=== PATIENT | female | born 1980 | race African-American/Black ===

== ENCOUNTER 2018-07-22 08:11 | Day surgery (SDC) | payer BC ==
[~2018-07-22 08:11] MED LIST: Bupivacaine 0.25% 10 ML SDV ONE; Fluorescein 5 ML Vial ONE; Methylene Blue 50 MG/10 ML Ampule ONE; Sodium Chloride 0.9% 10 ML SDV IV PRN; Sodium Chloride 0.9% 10 ML Syringe FLUSH PRN; Sodium Chloride 0.9% 2.5 ML Syringe FLUSH PRN
[2018-07-22] MEDS: Lactated Ringers 1,000 ML IV SCH ×2 (09:09→18:44)
[2018-07-22 09:10] LABS: CHLORIDE,CL 103 mmol/L (98-107); SODIUM,NA 141 mmol/L (136-145)
[2018-07-22] MEDS ORDERED: fentaNYL 250 MCG/5 ML SDV ONE (09:32)
[2018-07-22] MEDS ORDERED: Propofol 200 MG/20 ML SDV ONE ×2 (09:32→11:14)
--- NOTE | 2018-07-22 10:11 | PCM.PREANE ---
Preanesthetic Assessment - Anesthesia/Transfusion/Family Hx Anesthesia History: Prior Anesthesia Without Reaction Other Type of Anesthesia Reaction Comment: "dry heaves when I wake up" Family History of Anesthesia Reaction: No Transfusion History: No Prior Transfusion(s) - Review of Systems General: No Symptoms Pulmonary: No Symptoms Cardiovascular: No Symptoms Gastrointestinal: No Symptoms Neurological: No Symptoms Other: Reports: None - Physical Assessment NPO Status Date: 07/21/18 O2 Sat by Pulse Oximetry: 97 Respiratory Rate: 16 Vital Signs: Last Vital Signs Temp 97.2 F 07/22/18 08:30 Pulse 91 07/22/18 08:30 Resp 16 07/22/18 08:30 BP 150/91 H 07/22/18 08:30 Pulse Ox 97 07/22/18 08:30 Height: 5 ft 7 in Weight: 116.573 kg ASA Class: 2 Mental Status: Alert & Oriented x3 Dentition: Reports: Normal Dentition Lungs: Clear to Auscultation, Normal Respiratory Effort Cardiovascular: Regular Rate, Regular Rhythm - Lab Values: Laboratory Last Values WBC 6.19 K/uL (4.0-11.0) 07/22/18 08:41 RBC 4.84 M/uL (4.30-5.90) 07/22/18 08:41 Hgb 13.9 g/dL (12.0-16.0) 07/22/18 08:41 Hct 41.3 % (36.0-46.0) 07/22/18 08:41 MCV 85.3 fL (80.0-98.0) 07/22/18 08:41 MCH 28.7 pg (27.0-32.0) 07/22/18 08:41 MCHC 33.7 g/dL (31.0-37.0) 07/22/18 08:41 RDW Std Deviation 44.9 fl (28.0-62.0) 07/22/18 08:41 RDW Coeff of Candido 14 % (11.0-15.0) 07/22/18 08:41 Plt Count 261 K/uL (150-400) 07/22/18 08:41 MPV 11.30 fL (7.40-12.00) 07/22/18 08:41 Neut % (Auto) 60.2 % (48.0-80.0) 07/22/18 08:41 Lymph % (Auto) 27.5 % (16.0-40.0) 07/22/18 08:41 [place] % (Auto) 7.3 % (0.0-15.0) 07/22/18 08:41 Eos % (Auto) 4.5 % (0.0-7.0) 07/22/18 08:41 Baso % (Auto) 0.5 % (0.0-1.5) 07/22/18 08:41 Neut # (Auto) 3.7 K/uL (1.4-5.7) 07/22/18 08:41 Lymph # (Auto) 1.7 K/uL (0.6-2.4) 07/22/18 08:41 [place] # (Auto) 0.5 K/uL (0.0-0.8) 07/22/18 08:41 Eos # (Auto) 0.3 K/uL (0.0-0.7) 07/22/18 08:41 Baso # (Auto) 0.0 K/uL (0.0-0.1) 07/22/18 08:41 Nucleated RBC % 0.0 /100WBC 07/22/18 08:41 Nucleated RBCs # 0 K/uL 07/22/18 08:41 Sodium 141 mmol/L (136-145) 07/22/18 08:41 Potassium 3.4 mmol/L (3.5-5.1) L 07/22/18 08:41 Chloride 103 mmol/L (98-107) 07/22/18 08:41 Carbon Dioxide 24.6 mmol/L (21.0-32.0) 07/22/18 08:41 BUN 6 mg/dL (7.0-18.0) L 07/22/18 08:41 Creatinine 0.9 mg/dL (0.6-1.0) 07/22/18 08:41 Est Cr Clr Drug Dosing 83.23 mL/min 07/22/18 08:41 Estimated GFR (MDRD) > 60.0 ml/min 07/22/18 08:41 Glucose 101 mg/dL (74-106) 07/22/18 08:41 Calcium 9.0 mg/dL (8.5-10.1) 07/22/18 08:41 HCG, Qual NEGATIVE (NEG) 07/22/18 08:41 Blood Type O POSITIVE 07/22/18 08:41 Antibody Screen NEGATIVE 07/22/18 08:41 - Allergies Allergies/Adverse Reactions: Allergies Allergy/AdvReac Type Severity Reaction Status Date / Time No Known Allergies Allergy Verified 07/22/18 08:39 - Blood Blood Available: No - Anesthesia Plan Pre-Op Medication Ordered: None - Acknowledgements Anesthesia Type Planned: General Anesthesia Pt an Appropriate Candidate for the Planned Anesthesia: Yes Alternatives and Risks of Anesthesia Discussed w Pt/Guardian: Yes Pt/Guardian Understands and Agrees with Anesthesia Plan: Yes Additional Comments: PMH: [place], MARIO- not using CPAP, (60# wt loss since MARIO testing), PCOS, htn, smoker PLAN: get PreAnesthesia Questionnaire - Past Health History Medical/Surgical History: Denies Medical/Surgical History HEENT History: Reports: Other (See Below) Other HEENT History: wears glasses Cardiovascular History: Reports: Hypertension Other Cardiovascular History: on BP meds in the past, Respiratory History: Reports: Sleep Apnea Other Respiratory History: does not use CPAP Gastrointestinal History: Reports: Other (See Below) Other Gastrointestinal History: on pantoprazole for prevention due to bariatric surgery Genitourinary History: Reports: None [employer] History: Reports: Polycystic Ovaries, Musculoskeletal History: Reports: None Neurological History: Reports: None Psychiatric History: Reports: None Endocrine/Metabolic History: Reports: Obesity/BMI 30+ Other Endocrine/Metabolic History: "prediabetic" Hematologic History: Reports: None Immunologic History: Reports: None Oncologic (Cancer) History: Reports: None Dermatologic History: Reports: None - Infectious Disease History Infectious Disease History: Reports: Chicken Pox - Past Surgical History Head Surgeries/Procedures: Reports: None Respiratory Surgical History: Reports: None GI Surgical History: Reports: Bariatric Procedure, Other (See Below) Other GI Surgeries/Procedures: hx gasteric sleeve Female Surgical History: Reports: Section, Tubal Ligation Neurological Surgical History: Reports: None Musculoskeletal Surgical History: Reports: None Oncologic Surgical History: Reports: None - SUBSTANCE USE Smoking Status *Q: Current Some Day Smoker Tobacco Use Within Last Twelve Months: Cigarettes Recreational Drug Use History: No - HOME MEDS Home Medications: Home Meds Cholecalciferol (Vitamin D3) [Vitamin D3] 1,000 units PO DAILY 07/18/18 [History ] Cyanocobalamin (Vitamin B12) [Vitamin B12] 100 mcg PO DAILY 07/18/18 [History] Multivits,Ca,Minerals/Iron/FA [One-A-Day Women's] 1 tab PO DAILY 07/18/18 [ History] Pantoprazole Sodium 40 mg PO DAILY 07/18/18 [History] Vitamin B Complex 1 tab PO DAILY 07/18/18 [History] metFORMIN HCl [Metformin HCl ER] 500 mg PO DAILY 07/18/18 [History] - CURRENT (IN HOUSE) MEDS Current Meds: Current Medications Lactated Ringer's (Ringers, Lactated) 1,000 mls @ 125 mls/hr IV ASDIRECTED [place] Last Admin: 07/22/18 09:09 Dose: 125 mls/hr Sodium Chloride (Saline Flush) 10 ml FLUSH ASDIRECTED PRN PRN Reason: Keep Vein Open Sodium Chloride (Saline Flush) 2.5 ml FLUSH ASDIRECTED PRN PRN Reason: Keep Vein Open Sodium Chloride (Normal Saline) 10 ml IV ASDIRECTED PRN PRN Reason: IV Use Discontinued Medications Bupivacaine HCl (Sensorcaine-Mpf 0.25%) Confirm Administered Dose 10 ml .ROUTE .STK-MED ONE Stop: 07/22/18 08:07 Fentanyl (Sublimaze) Confirm Administered Dose 250 mcg .ROUTE .STK-MED ONE Stop: 07/22/18 09:33 Fluorescein Sodium (Ak-Fluor) Confirm Administered Dose 5 ml .ROUTE .STK-MED ONE Stop: 07/22/18 08:07 Cefazolin Sodium/Dextrose 3 gm (/ Premix) 75 mls @ 100 mls/hr IV ONETIME ONE Stop: 07/22/18 08:36 Methylene Blue (Provayblue) Confirm Administered Dose 50 mg .ROUTE .STK-MED ONE Stop: 07/22/18 08:07 Propofol (Diprivan 20 Ml) Confirm Administered Dose 200 mg .ROUTE .STK-MED ONE Stop: 07/22/18 09:33
[2018-07-22] MEDS ORDERED: Rocuronium 100 MG/10 ML Syringe ONE (10:27)
[2018-07-22] MEDS ORDERED: Lidocaine 2% 5 ML SDV ONE (10:27)
[2018-07-22] MEDS ORDERED: ceFAZolin/Dextrose,Iso-Osmotic 2 GM/50 ML Duplex Bag IV ONE (10:28)
[2018-07-22] MEDS ORDERED: ceFAZolin 1 GM Vial ONE (10:29)
[2018-07-22] MEDS ORDERED: Midazolam 1 MG/ML 2 ML SDV ONE (10:29)
[2018-07-22] MEDS ORDERED: Ondansetron 4 MG/2 ML SDV ONE (11:19)
[2018-07-22] MEDS ORDERED: Ondansetron 4 MG/2 ML SDV IVPUSH ONE (11:22)
[2018-07-22] MEDS ORDERED: HYDROmorphone 2 MG/ML SDV IVPUSH ONE (11:22)
[2018-07-22] MEDS ORDERED: fentaNYL 100 MCG/2 ML SDV IVPUSH PRN (11:22)
[2018-07-22] MEDS ORDERED: HYDROmorphone 2 MG/ML Syringe ONE (11:23)
[2018-07-22] MEDS ORDERED: Furosemide 40 MG/4 ML VIAL ONE (12:29)
[2018-07-22] MEDS ORDERED: Glycopyrrolate 0.2 MG/ML SDV ONE (13:01)
[2018-07-22] MEDS ORDERED: Neostigmine Methylsulfate 1 MG/ML 5 ML Syringe ONE (13:01)
[2018-07-22] MEDS ORDERED: Ketorolac 30 MG/ML SDV ONE (13:02)
[2018-07-22] MEDS ORDERED: Ketorolac 30 MG/ML SDV IVPUSH ONE (13:19)
[2018-07-22] MEDS ORDERED: Promethazine 25 MG/ML SDV IM PRN (13:19)
[2018-07-22] MEDS ORDERED: Morphine 4 MG/ML Syringe IVPUSH PRN (13:19)
[2018-07-22] MEDS ORDERED: Ondansetron 4 MG/2 ML SDV IVPUSH PRN (13:19)
[2018-07-22] MEDS ORDERED: Ketorolac 30 MG/ML SDV IVPUSH PRN (13:19)
[2018-07-22] MEDS ORDERED: Acetaminophen/oxyCODONE 325-5 MG Tab PO PRN (13:19)
[2018-07-22] MEDS ORDERED: Acetaminophen 1,000 MG in Premix Bag 1 BAG IV PRN (13:23)
--- NOTE | 2018-07-22 13:27 | PCM.OPNOTE ---
- General Post-Op/Procedure Note Date of Surgery/Procedure: 07/22/18 Operative Procedure(s): Total laparoscopic Hysterectomy. Bilateral salphingectomy. Cystoscopy Findings: Normal sized anteverted uterus Tubes with evidence of salphingectomy Pre Op Diagnosis: Abnormal Uterine bleeding Post-Op Diagnosis: Abnormal Uterine bleeding Anesthesia Technique: Other (see below) (General) Primary Surgeon: Alberto Hope Secondary Surgeon: Josefina Navarro Pathology: Uterus and Tubes Fluid Replacement, Intraop: 75 Output, Urine Amount: 1,500 EBL in mLs: 100 Complications: None Condition: Good
--- NOTE | 2018-07-22 13:48 | PCM.POSTAN ---
POST ANESTHESIA ASSESSMENT - MENTAL STATUS Mental Status: Alert, Oriented - RESPIRATORY Respiratory Status: Respiratory Rate WNL, Airway Patent, O2 Saturation Stable - CARDIOVASCULAR CV Status: Pulse Rate WNL, Blood Pressure Stable - GASTROINTESTINAL GI Status: No Symptoms - POST OP HYDRATION Hydration Status: Adequate & Stable
[2018-07-22] MEDS: Acetaminophen/oxyCODONE 325-5 MG Tab PO PRN ×2 (16:25→20:33)
[2018-07-22] MEDS: Metoclopramide 10 MG/2 ML SDV IVPUSH SCH ×2 (18:50→20:34)
[2018-07-22] MEDS ORDERED: ceFAZolin 2 GM in Premix Bag 1 BAG IV ONE (20:00)
[2018-07-23] MEDS: Acetaminophen/oxyCODONE 325-5 MG Tab PO PRN ×3 (00:33→08:26)
[2018-07-23] MEDS: Metoclopramide 10 MG/2 ML SDV IVPUSH SCH ×2 (04:31→04:33)
[2018-07-23 06:22] LABS: CHLORIDE,CL 102 mmol/L (98-107); SODIUM,NA 137 mmol/L (136-145)
[2018-07-23 07:40] VITALS: BP 110/56
--- NOTE | 2018-07-23 08:02 | PCM48HPAN ---
Post Anesthesia Note - EVALUATION WITHIN 48HRS OF ANESTHETIC Vital Signs in Normal Range: Yes Patient Participated in Evaluation: Yes Respiratory Function Stable: Yes Airway Patent: Yes Cardiovascular Function Stable: Yes Hydration Status Stable: Yes Pain Control Satisfactory: Yes (pain 6/10 but controlled per patient) Nausea and Vomiting Control Satisfactory: Yes Mental Status Recovered: Yes Resp Rate: 17
--- NOTE | 2018-07-23 08:43 | PCM.SURGPN ---
- General Info Date of Service: 07/23/18 Date of Surgery/Procedure: 07/22/18 POD#: 1 Post-Op Diagnosis: Abnormal Uterine Bleeding Functional Status: Reports: Pain Controlled, Tolerating Diet, Ambulating, Urinating - Review of Systems General: Reports: No Symptoms HEENT: Reports: No Symptoms Pulmonary: Reports: No Symptoms Cardiovascular: Reports: No Symptoms Gastrointestinal: Reports: No Symptoms Genitourinary: Reports: No Symptoms Musculoskeletal: Reports: No Symptoms Skin: Reports: No Symptoms Neurological: Reports: No Symptoms Psychiatric: Reports: No Symptoms - Patient Data Vitals - Most Recent: Last Vital Signs Temp 37.0 C 07/23/18 07:39 Pulse 60 07/23/18 07:39 Resp 17 07/23/18 08:02 BP 110/56 L 07/23/18 07:39 Pulse Ox 96 07/23/18 07:39 Weight - Most Recent: 116.573 kg I&O - Last 24 Hours: Intake & Output 07/22/18 07/23/18 07/23/18 22:59 06:59 14:59 Intake Total 250 1100 Output Total 200 450 Balance 50 650 Lab Results Last 24 Hrs: Laboratory Results - last 24 hr 07/22/18 07/22/18 07/22/18 Range/Units 08:41 08:41 08:41 WBC 6.19 (4.0-11.0) K/uL RBC 4.84 (4.30-5.90) M/uL Hgb 13.9 (12.0-16.0) g/dL Hct 41.3 (36.0-46.0) % MCV 85.3 (80.0-98.0) fL MCH 28.7 (27.0-32.0) pg MCHC 33.7 (31.0-37.0) g/dL RDW Std Deviation 44.9 (28.0-62.0) fl RDW Coeff of Candido 14 (11.0-15.0) % Plt Count 261 (150-400) K/uL MPV 11.30 (7.40-12.00) fL Neut % (Auto) 60.2 (48.0-80.0) % Lymph % (Auto) 27.5 (16.0-40.0) % [place] % (Auto) 7.3 (0.0-15.0) % Eos % (Auto) 4.5 (0.0-7.0) % Baso % (Auto) 0.5 (0.0-1.5) % Neut # (Auto) 3.7 (1.4-5.7) K/uL Lymph # (Auto) 1.7 (0.6-2.4) K/uL [place] # (Auto) 0.5 (0.0-0.8) K/uL Eos # (Auto) 0.3 (0.0-0.7) K/uL Baso # (Auto) 0.0 (0.0-0.1) K/uL Nucleated RBC % 0.0 /100WBC Nucleated RBCs # 0 K/uL Sodium 141 (136-145) mmol/L Potassium 3.4 L (3.5-5.1) mmol/L Chloride 103 (98-107) mmol/L Carbon Dioxide 24.6 (21.0-32.0) mmol/L BUN 6 L (7.0-18.0) mg/dL Creatinine 0.9 (0.6-1.0) mg/dL Est Cr Clr Drug Dosing 83.23 mL/min Estimated GFR (MDRD) > 60.0 ml/min Glucose 101 (74-106) mg/dL Calcium 9.0 (8.5-10.1) mg/dL HCG, Qual NEGATIVE (NEG) Blood Type Antibody Screen 07/22/18 07/23/18 07/23/18 Range/Units 08:41 05:30 05:30 WBC 9.22 (4.0-11.0) K/uL RBC 4.06 L (4.30-5.90) M/uL Hgb 11.7 L (12.0-16.0) g/dL Hct 34.9 L (36.0-46.0) % MCV 86.0 (80.0-98.0) fL MCH 28.8 (27.0-32.0) pg MCHC 33.5 (31.0-37.0) g/dL RDW Std Deviation 44.4 (28.0-62.0) fl RDW Coeff of Candido 14 (11.0-15.0) % Plt Count 268 (150-400) K/uL MPV 11.60 (7.40-12.00) fL Neut % (Auto) 76.9 (48.0-80.0) % Lymph % (Auto) 15.1 L (16.0-40.0) % [place] % (Auto) 7.4 (0.0-15.0) % Eos % (Auto) 0.5 (0.0-7.0) % Baso % (Auto) 0.1 (0.0-1.5) % Neut # (Auto) 7.1 H (1.4-5.7) K/uL Lymph # (Auto) 1.4 (0.6-2.4) K/uL [place] # (Auto) 0.7 (0.0-0.8) K/uL Eos # (Auto) 0.1 (0.0-0.7) K/uL Baso # (Auto) 0.0 (0.0-0.1) K/uL Nucleated RBC % 0.0 /100WBC Nucleated RBCs # 0 K/uL Sodium 137 (136-145) mmol/L Potassium 4.7 (3.5-5.1) mmol/L Chloride 102 (98-107) mmol/L Carbon Dioxide 27.6 (21.0-32.0) mmol/L BUN 7 (7.0-18.0) mg/dL Creatinine 0.9 (0.6-1.0) mg/dL Est Cr Clr Drug Dosing 83.23 mL/min Estimated GFR (MDRD) > 60.0 ml/min Glucose 112 H (74-106) mg/dL Calcium 8.4 L (8.5-10.1) mg/dL HCG, Qual (NEG) Blood Type O POSITIVE Antibody Screen NEGATIVE Med Orders - Current: Current Medications Fentanyl (Sublimaze) 50 mcg IVPUSH Q5M PRN PRN Reason: Pain (severe 7-10) Stop: 07/23/18 11:22 Lactated Ringer's (Ringers, Lactated) 1,000 mls @ 125 mls/hr IV ASDIRECTED [facility] Last Admin: 07/22/18 18:44 Dose: 125 mls/hr Acetaminophen 1,000 mg/ Premix 100 mls @ 400 mls/hr IV Q6H PRN PRN Reason: Pain Ketorolac Tromethamine (Toradol) 30 mg IVPUSH Q6H PRN PRN Reason: Pain (severe 7-10) Stop: 07/27/18 13:19 Last Admin: 07/22/18 19:47 Dose: 30 mg Metoclopramide HCl (Reglan) 10 mg IVPUSH Q8H [place] Last Admin: 07/23/18 04:33 Dose: Not Given Morphine Sulfate (Morphine) 4 mg IVPUSH Q2H PRN PRN Reason: Pain (severe 7-10) Ondansetron HCl (Zofran) 4 mg IVPUSH Q6H PRN PRN Reason: Nausea/Vomiting Oxycodone/Acetaminophen (Percocet 325-5 Mg) 1 tab PO Q4H PRN PRN Reason: Pain (moderate 4-6) Oxycodone/Acetaminophen (Percocet 325-5 Mg) 2 tab PO Q4H PRN PRN Reason: Pain (moderate 4-6) Last Admin: 07/23/18 08:26 Dose: 2 tab Promethazine HCl (Phenergan) 25 mg IM Q6H PRN PRN Reason: Nausea/Vomiting Sodium Chloride (Saline Flush) 10 ml FLUSH ASDIRECTED PRN PRN Reason: Keep Vein Open Sodium Chloride (Saline Flush) 2.5 ml FLUSH ASDIRECTED PRN PRN Reason: Keep Vein Open Sodium Chloride (Normal Saline) 10 ml IV ASDIRECTED PRN PRN Reason: IV Use Discontinued Medications Bupivacaine HCl (Sensorcaine-Mpf 0.25%) Confirm Administered Dose 10 ml .ROUTE .STK-MED ONE Stop: 07/22/18 08:07 Cefazolin Sodium (Ancef) Confirm Administered Dose 1 gm .ROUTE .STK-MED ONE Stop: 07/22/18 10:30 Cefazolin Sodium/Dextrose (Ancef) Confirm Administered Dose 2 gm IV .STK-MED ONE Stop: 07/22/18 10:29 Fentanyl (Sublimaze) Confirm Administered Dose 250 mcg .ROUTE .STK-MED ONE Stop: 07/22/18 09:33 Fluorescein Sodium (Ak-Fluor) Confirm Administered Dose 5 ml .ROUTE .STK-MED ONE Stop: 07/22/18 08:07 Furosemide (Lasix) Confirm Administered Dose 40 mg .ROUTE .STK-MED ONE Stop: 07/22/18 12:30 Glycopyrrolate (Robinul) Confirm Administered Dose 0.2 mg .ROUTE .STK-MED ONE Stop: 07/22/18 13:02 Hydromorphone HCl (Dilaudid) Confirm Administered Dose 2 mg .ROUTE .STK-MED ONE Stop: 07/22/18 11:24 Hydromorphone HCl (Dilaudid) 2 mg IVPUSH ONETIME ONE Stop: 07/22/18 11:23 Last Admin: 07/22/18 18:43 Dose: Not Given Cefazolin Sodium/Dextrose 3 gm (/ Premix) 75 mls @ 100 mls/hr IV ONETIME ONE Stop: 07/22/18 08:36 Last Admin: 07/22/18 18:42 Dose: Not Given Cefazolin Sodium/Dextrose 2 gm (/ Premix) 50 mls @ 100 mls/hr IV ONETIME ONE Stop: 07/22/18 20:29 Last Admin: 07/22/18 19:47 Dose: 100 mls/hr Ketorolac Tromethamine (Toradol) Confirm Administered Dose 30 mg .ROUTE .STK- MED ONE Stop: 07/22/18 13:03 Ketorolac Tromethamine (Toradol) 30 mg IVPUSH ONETIME ONE Stop: 07/22/18 13:20 Last Admin: 07/22/18 18:48 Dose: Not Given Lidocaine (Xylocaine-Mpf 2%) Confirm Administered Dose 5 ml .ROUTE .STK-MED ONE Stop: 07/22/18 10:28 Methylene Blue (Provayblue) Confirm Administered Dose 50 mg .ROUTE .STK-MED ONE Stop: 07/22/18 08:07 Midazolam HCl (Versed 1 Mg/Ml) Confirm Administered Dose 2 mg .ROUTE .STK-MED ONE Stop: 07/22/18 10:30 Neostigmine Methylsulfate (Neostigmine) Confirm Administered Dose 5 mg .ROUTE .STK-MED ONE Stop: 07/22/18 13:02 Ondansetron HCl (Zofran) Confirm Administered Dose 4 mg .ROUTE .STK-MED ONE Stop: 07/22/18 11:20 Ondansetron HCl (Zofran) 4 mg IVPUSH ONETIME ONE Stop: 07/22/18 11:23 Last Admin: 07/22/18 18:43 Dose: Not Given Propofol (Diprivan 20 Ml) Confirm Administered Dose 200 mg .ROUTE .STK-MED ONE Stop: 07/22/18 09:33 Propofol (Diprivan 20 Ml) Confirm Administered Dose 200 mg .ROUTE .STK-MED ONE Stop: 07/22/18 11:15 Rocuronium [place] (Zemuron) Confirm Administered Dose 100 mg .ROUTE .STK-MED ONE Stop: 07/22/18 10:28 - Exam Wound/Incisions: Healing Well, Dressing Dry and Intact General: Alert HEENT: Pupils Equal Neck: Supple Lungs: Clear to Auscultation Cardiovascular: Regular Rate, Regular Rhythm GI/Abdominal Exam: Normal Bowel Sounds Extremities: Normal Inspection Neurological: No New Focal Deficit Psy/Mental Status: Alert - Problem List & Annotations (1) S/P hysterectomy SNOMED Code(s): 317945593, 640406090, 753788019 Code(s): Z90.710 - ACQUIRED ABSENCE OF BOTH CERVIX AND UTERUS Status: Acute Current Visit: Yes - Problem List Review Problem List Initiated/Reviewed/Updated: Yes - My Orders Last 24 Hours: Active Orders 24 hr Category Date Time Status Patient Status [ADT] Routine ADT 07/22/18 08:07 Active Patient Status [ADT] Routine ADT 07/22/18 13:19 Active Antiembolic Devices [RC] PER UNIT ROUTINE Care 07/22/18 08:08 Active Bradycardia-Neuroaxis [employer] [RC] ROUTINE Care 07/22/18 11:22 Active Communication Order [RC] ROUTINE Care 07/22/18 17:39 Active Hypertension-Neuroaxis [employer] [RC] ROUTINE Care 07/22/18 11:22 Active Hypotension-Neuroaxis [employer] [RC] ROUTINE Care 07/22/18 11:22 Active Notify Provider Intake and Out [RC] ASDIRECTED Care 07/22/18 13:19 Active Notify Provider Vital Signs [RC] ASDIRECTED Care 07/22/18 13:19 Active Oxygen Therapy [RC] ASDIRECTED Care 07/22/18 13:19 Active RT Incentive Spirometry [RC] Q2HWA Care 07/22/18 13:19 Active Up With Assistance [RC] PER UNIT ROUTINE Care 07/22/18 13:19 Active Up ad Viktoria [RC] PER UNIT ROUTINE Care 07/22/18 13:19 Active Urinary Catheter Removal [RC] Per Unit Routine Care 07/23/18 03:00 Active Vital Signs [RC] PER UNIT ROUTINE Care 07/22/18 08:07 Active Vital Signs [RC] Q4H Care 07/22/18 13:19 Active Regular Diet [DIET] Diet 07/22/18 Dinner Active Acetaminophen [Ofirmev] 1,000 mg Med 07/22/18 13:23 Active Premix Bag 1 bag IV Q6H Acetaminophen/oxyCODONE [Percocet 325-5 MG] Med 07/22/18 13:19 Active 1 tab PO Q4H PRN Acetaminophen/oxyCODONE [Percocet 325-5 MG] Med 07/22/18 13:19 Active 2 tab PO Q4H PRN Ketorolac [Toradol] Med 07/22/18 13:19 Active 30 mg IVPUSH Q6H PRN Lactated Ringers [Ringers, Lactated] 1,000 ml Med 07/22/18 08:15 Active IV ASDIRECTED Metoclopramide [Reglan] Med 07/22/18 13:30 Active 10 mg IVPUSH Q8H [place] Med 07/22/18 13:19 Active 4 mg IVPUSH Q2H PRN Ondansetron [Zofran] Med 07/22/18 13:19 Active 4 mg IVPUSH Q6H PRN Promethazine [Phenergan] Med 07/22/18 13:19 Active 25 mg IM Q6H PRN Sodium Chloride 0.9% [Normal Saline] Med 07/22/18 08:07 Active 10 ml IV ASDIRECTED PRN Sodium Chloride 0.9% [Saline Flush] Med 07/22/18 08:07 Active 10 ml FLUSH ASDIRECTED PRN Sodium Chloride 0.9% [Saline Flush] Med 07/22/18 08:07 Active 2.5 ml FLUSH ASDIRECTED PRN fentaNYL [Sublimaze] Med 07/22/18 11:22 Active 50 mcg IVPUSH Q5M PRN Peripheral IV Discontinue [OM.PC] Routine Oth 07/22/18 13:19 Ordered Peripheral IV Insertion Adult [OM.PC] Urgent Oth 07/22/18 08:07 Ordered Sequential Compression Device [OM.PC] Per Unit Routine Oth 07/22/18 08:07 Ordered Sequential Compression Device [OM.PC] Per Unit Routine Oth 07/22/18 13:19 Ordered Resuscitation Status Routine Resus Stat 07/22/18 13:19 Ordered Medication Orders Fentanyl (Sublimaze) 50 mcg IVPUSH Q5M PRN PRN Reason: Pain (severe 7-10) Stop: 07/23/18 11:22 Lactated Ringer's (Ringers, Lactated) 1,000 mls @ 125 mls/hr IV ASDIRECTED [facility] Last Admin: 07/22/18 18:44 Dose: 125 mls/hr Infusion: 07/22/18 17:09 Dose: 125 mls/hr Admin: 07/22/18 09:09 Dose: 125 mls/hr Acetaminophen 1,000 mg/ Premix 100 mls @ 400 mls/hr IV Q6H PRN PRN Reason: Pain Ketorolac Tromethamine (Toradol) 30 mg IVPUSH Q6H PRN PRN Reason: Pain (severe 7-10) Stop: 07/27/18 13:19 Last Admin: 07/22/18 19:47 Dose: 30 mg Metoclopramide HCl (Reglan) 10 mg IVPUSH Q8H [facility] Last Admin: 07/23/18 04:33 Dose: Not Given Admin: 07/22/18 20:34 Dose: 10 mg Admin: 07/22/18 18:50 Dose: Morphine Sulfate (Morphine) 4 mg IVPUSH Q2H PRN PRN Reason: Pain (severe 7-10) Ondansetron HCl (Zofran) 4 mg IVPUSH Q6H PRN PRN Reason: Nausea/Vomiting Oxycodone/Acetaminophen (Percocet 325-5 Mg) 1 tab PO Q4H PRN PRN Reason: Pain (moderate 4-6) Oxycodone/Acetaminophen (Percocet 325-5 Mg) 2 tab PO Q4H PRN PRN Reason: Pain (moderate 4-6) Last Admin: 07/23/18 08:26 Dose: 2 tab Admin: 07/23/18 04:31 Dose: 2 tab Admin: 07/23/18 00:33 Dose: 2 tab Admin: 07/22/18 20:33 Dose: 2 tab Admin: 07/22/18 16:25 Dose: 2 tab Promethazine HCl (Phenergan) 25 mg IM Q6H PRN PRN Reason: Nausea/Vomiting Sodium Chloride (Saline Flush) 10 ml FLUSH ASDIRECTED PRN PRN Reason: Keep Vein Open Sodium Chloride (Saline Flush) 2.5 ml FLUSH ASDIRECTED PRN PRN Reason: Keep Vein Open Sodium Chloride (Normal Saline) 10 ml IV ASDIRECTED PRN PRN Reason: IV Use - Assessment Assessment (Free Text/Narrative):: 38 yo P3 s/p TLH/BS , cystectomy ,stable POD 1 - Plan Plan (Free Text/Narrative):: Pain control as needed Discharge home today Has met all post operative goals
--- NOTE | 2018-07-23 13:52 | OR ---
SURGEON: CORWIN VILLAR GRID MAKER: Josefina Navarro M.D. DATE OF PROCEDURE: 07/22/2018 PREOPERATIVE DIAGNOSIS: Abnormal uterine bleeding. POSTOPERATIVE DIAGNOSIS: Abnormal uterine bleeding. PROCEDURE: Total laparoscopic hysterectomy, bilateral salpingectomy, and cystoscopy. IV FLUIDS: 1500 mL. ESTIMATED BLOOD LOSS: 100 mL. ANESTHESIA: General. URINE OUTPUT: 75 mL. FINDINGS: A normal sized uterus with minimal adhesions noted. The cystoscopy showed intact bladder and bilateral ureteral jets. BRIEF HISTORY: She was a 38-year-old para 3, previous 3 C-sections and recent history of laparoscopic gastric sleeve. The patient came in complaining of abnormal uterine bleeding, which was affecting her quality of life. She declined any form of conservative management and wanted total hysterectomy. She was given the risks, benefits, and alternatives, and she desired to proceed. DESCRIPTION OF PROCEDURE: The patient was taken to the operating room, where general anesthesia was performed without difficulty. She was prepared and draped in the dorsolithotomy position with Aguilar stirrups. Attention was then placed to the perineum, where an Advincula manipulator was placed in without difficulty. Attention was then paid to the abdomen, where a suprapubic incision was made, after infiltration of 0.25% Marcaine. The abdomen was entered via direct entry with the gas on low flow. Upon entry into the abdomen, the abdomen was surveyed. Normal liver and gallbladder. Minimal adhesions were noted. Attention was then paid to the pelvis, where the procedure was to be started. The patient was placed in the Trendelenburg position, and 2 incisions were made in the right and lower left quadrants 2 fingerbreadths both superior and medial to the anterior superior iliac spine. Attention was paid on the right side where the fallopian tube was from the ovaries and the pelvic sidewall all the way to the cornua. The round ligament was then transected to expose the bladder flap. The bladder flap was then created anteriorly, and also posteriorly, the bladder flap was then made to the uterosacral. The uterine vessels were skeletonized. The uterine vessels were then coagulated at the junction of the colpotomy cup on the front side. After coagulation above the cup and slightly below the cup, the uterine vessels were transected slightly above the cup. The Harmonic device was then used to delineate a ruben to separate the cervix from the vagina. Then, attention was paid to the left side. At the left side, the same was done. The fallopian tube was from the pelvic sidewall and ovary, and the ovarian ligament was also transected, and the uterine vessel was exposed. The uterus was coagulated and cut at the level of the colpotomy wound. Then, the cervicovaginal junction was cut circumferentially with help of the Harmonic device. After detaching the uterus from the vagina, attention was then paid to the perineum, where the uterus was removed from the vagina, and the colpotomy cup was then exposed. The uterosacrals on both sides were identified and transfixed with a 2-0 Vicryl stitch. Then, the colpotomy cup was sutured from anterior to posterior with the uterosacrals tied in the midline, and the incision was inspected and found to be hemostatic. Cystoscopy was then performed. Bilateral ureteral jets were noted. The dome of the bladder was found and was noted to be hemostatic. After this procedure, attention was then paid to the abdomen, where the incision was inspected from above, and it was irrigated. Hemostasis was noted and pneumoperitoneum was reduced down to 5 mmHg and was also hemostatic. All the instruments were removed. The pneumoperitoneum was released and port removed , and the laparoscopic incision was sutured. All instrument and pad counts were correct x2. The patient tolerated the procedure well and was taken to the recovery room in stable condition. SUSANA SEGAL /[id number] TAY
== END 2018-07-23 10:25 | disposition home or self-care (01) ==
LOC: MW.SDS 08:11 → MW.MS 14:58 → MW.SDS 07-23 10:25
PROVIDERS: ATTEND Obstetrics & Gynecology
DX: D25.1 Intramural leiomyoma of uterus (principal); N93.9 Abnormal uterine and vaginal bleeding, unspecified; E28.2 Polycystic ovarian syndrome; I10 Essential (primary) hypertension; E11.9 Type 2 diabetes mellitus without complications; G47.33 Obstructive sleep apnea (adult) (pediatric); E66.01 Morbid (severe) obesity due to excess calories; Z68.41 Body mass index [BMI] 40.0-44.9, adult; Z79.84 Long term (current) use of oral hypoglycemic drugs; Z79.899 Other long term (current) drug therapy
CPT/HCPCS: 36415; 58571; 80048; 84703; 85025; 86850; 86900; 86901; 88307; A9270; J0690; J1170; J1885; J1940; J2001; J2250; J2405; J2704; J2765; J3010; J3490; J7120; 00840